=== PATIENT | male | born 1980 | race Caucasian/White ===

== ENCOUNTER 2019-05-14 18:05 | Emergency (ER) | payer SELFPAY ==
[2019-05-14 18:14] VITALS: BP 134/89; PULSE 98; RESP 18; TEMP 36.8; O2SAT 99; BMI 31.0
--- NOTE | 2019-05-14 18:28 | ED_ITS ---
HPI - Extremity Problem General Chief complaint: Extremity Problem,Nontraumatic Stated complaint: PAIN IN ARMS Time Seen by Provider: 05/14/19 18:11 Source: patient Mode of arrival: Ambulatory Limitations: no limitations History of Present Illness HPI Narrative: 38-year-old male with known bilateral carpal tunnel syndrome. Is scheduled to have bilateral carpal tunnel release in approximately 2 weeks. Is here for increasing pain over the past 2 days. He does admit to having increase movement and working over the past couple days. He has been on steroids in the past but is not on anything now. Has had some pain medication in the past but nothing recently. Is currently taking ibuprofen. Related Data Previous Rx's Medication Instructions Recorded hydrocodone-acetaminophen [[place]] 1 tab PO Q4-6H PRN #10 tab 05/14/19 prednisone 20 mg PO DAILY 5 Days #5 tab 05/14/19 Allergies Allergy/AdvReac Type Severity Reaction Status Date / Time amoxicillin Allergy Verified 05/14/19 18:34 Review of Systems Constitutional Constitutional: Denies fever(s) and Denies headache(s) ENT Ears, Nose, Mouth, and Throat: Denies headache(s) Cardiovascular Cardiovascular: Denies chest pain and Denies dyspnea Respiratory Respiratory: Denies dyspnea Gastrointestinal Gastrointestinal: Denies abdominal pain, Denies nausea and Denies vomiting Musculoskeletal Comments: Bilateral wrist and hand pain Integumentary/Breasts Skin/Breast: Denies lesions and Denies rash Neurologic Neurologic: Denies behavioral changes and Denies headache(s) Psychiatric Psychiatric: Denies behavioral changes Hematologic/Lymphatic Hematologic/Lymphatic: Denies easy bleeding and Denies easy bruising [facility] Medical History Carpal tunnel syndrome (Acute) Social History Smoking Status: Never smoker Social History Smoking Status: Never smoker Exam Initial Vital Signs Initial Vital Signs: Vital Signs Temperature 98.2 F 05/14/19 18:14 Pulse Rate 98 H 05/14/19 18:14 Respiratory Rate 18 05/14/19 18:14 Blood Pressure 134/89 05/14/19 18:14 Pulse Oximetry 99 05/14/19 18:14 Const General: cooperative, comfortable and well developed Orientation: alert, awake and oriented x3 HENMT Head: normal to inspection and normocephalic Resp Effort & Inspection: normal respiratory effort Cardio Rate: regular rate Skin Lesions: no lesions Rashes: no rashes Neuro Other: Subjective tingling bilateral hands Extrem Other: Full range of motion of bilateral wrists with discomfort Psych Appearance: grossly normal and well kempt Course Vital Signs Vital signs: Vital Signs - 8 hr 05/14/19 18:14 Temperature 98.2 F Pulse Rate 98 H Respiratory Rate 18 Blood Pressure 134/89 Pulse Oximetry 99 MDM - Extremity (Nontraumatic) MDM Narrative Medical decision making narrative: Patient has history of physical exam consistent bilateral carpal tunnel syndrome that has most likely been worsening for the past couple days because of increased activity. He is scheduled for surgery. Will send home with a very short course of steroids and a very short course of pain medication. No imaging required here in the ER. Patient was given return precautions and follow-up instructions. He expressed understanding and agreement plan. Discharge Plan Departure Patient Disposition: Home Clinical Impression: Carpal tunnel syndrome on both sides Discharge Date/Time: 05/14/19 18:56 Instructions: Carpal Tunnel Syndrome (Alternative Therapy), Carpal Tunnel Syndrome Activity Restrictions/Additional Instructions: Take the medication as directed. keep all of your scheduled medical appointments. Continue with the tylenol and motrin and your other medications like we discussed. Return to the ER for any new or worsening symptoms. Prescriptions: New prednisone 20 mg tablet 20 mg PO DAILY 5 Days Qty: 5 RF: 0 hydrocodone-acetaminophen [[place]] 10-325 mg tablet 1 tab PO Q4-6H PRN (Reason: pain) Qty: 10 RF: 0
== END 2019-05-14 18:56 | disposition home or self-care (01) ==
PROVIDERS: Emergency Provider Emergency Medicine
DX: G56.00 Carpal tunnel syndrome, unspecified upper limb (principal)
CPT/HCPCS: 99282